=== PATIENT | female | born 1990 | race Caucasian/White ===

== ENCOUNTER → 2020-10-02 10:43 | Outpatient (CLI) | payer OTHER, SELFPAY ==
[2020-10-02 11:22] LABS: Add Manual Diff / Slide Review NO; Basophils Absolute Auto 0 /uL (0-100); Basophils Percent Auto 0.7 % (0-2); Eosinophils Absolute Auto 0 /uL (0-450); Eosinophils Percent Auto 0.5 % (2-4); Hematocrit 39.2 % (36-46); Hemoglobin 12.9 g/dL (12.0-16.0); Lymphocytes Absolute Auto 1100 /uL (1100-4500); Mean Corpuscular Hemoglobin 30.3 PG (26-34); Monocytes Absolute Auto 300 /uL (0-900); Monocytes Percent Auto 6.1 % (3-14); Neutrophils Absolute Auto 3000 /uL (1500-7000); Neutrophils Percent Auto 67.7 % (50-75); Platelet Count 211 X10^3/uL (150-400); Red Blood Cell Count 4.27 X10^6/uL (4.0-5.2); Red Cell Distribution Width 12.7 % (11.6-14.8); White Blood Cell Count 4.4 X10^3/uL (4.5-11.0)
[2020-10-02 12:17] LABS: Free T4, Direct Thyroxine 1.13 ng/dL (0.78-2.19)
[2020-10-02 12:31] LABS: Thyroid Stimulating Hormone 1.32 uIU/mL (0.47-4.68)
[2020-10-03 08:36] LABS: Rubeola Measles IgG 19.6 AU/mL (Immune >16.4); Varicella IgG Antibody 570 index (Immune >165)
== END ==
PROVIDERS: PCP Obstetrics & Gynecology; Referring Provider Obstetrics & Gynecology; Visit Provider Obstetrics & Gynecology
DX: Z31.69 Encounter for other general counseling and advice on procreation (principal)
CPT/HCPCS: 36415; 84439; 84443; 85025; 86735; 86762; 86765; 86787

== ENCOUNTER → 2021-04-14 10:04 | Outpatient (CLI) | payer OTHER, SELFPAY ==
[2021-04-14 11:52] LABS: HCG Quantitative /Beta subunit 49.1 mIU/mL
== END ==
PROVIDERS: Referring Provider Obstetrics & Gynecology; Visit Provider Obstetrics & Gynecology
DX: O20.9 Hemorrhage in early pregnancy, unspecified (principal)
CPT/HCPCS: 36415; 84702

== ENCOUNTER → 2021-04-16 14:48 | Outpatient (CLI) | payer OTHER, SELFPAY | PROVIDERS: Referring Provider Obstetrics & Gynecology; Visit Provider Obstetrics & Gynecology | DX: O20.9 Hemorrhage in early pregnancy, unspecified (principal) | CPT/HCPCS: 36415; 84702 ==

== ENCOUNTER → 2021-04-23 10:17 | Outpatient (CLI) | payer OTHER, SELFPAY ==
[2021-04-23 11:45] LABS: HCG Quantitative /Beta subunit 12.6 mIU/mL
== END ==
PROVIDERS: Referring Provider Obstetrics & Gynecology; Visit Provider Obstetrics & Gynecology
DX: O36.80X0 Pregnancy with inconclusive fetal viability, not applicable or unspecified (principal)
CPT/HCPCS: 36415; 84702; 86850; 86900; 86901

== ENCOUNTER → 2021-05-05 07:44 | Outpatient (CLI) | payer OTHER, SELFPAY | PROVIDERS: Visit Provider Student in an Organized Health Care Education/Training Program | DX: N34.3 Urethral syndrome, unspecified (principal) | CPT/HCPCS: 87086 ==

== ENCOUNTER → 2021-05-26 11:14 | Outpatient (CLI) | payer OTHER, SELFPAY ==
[2021-05-26 13:34] LABS: HCG Quantitative /Beta subunit 75.4 mIU/mL
== END ==
PROVIDERS: Referring Provider Obstetrics & Gynecology; Visit Provider Obstetrics & Gynecology
DX: O20.9 Hemorrhage in early pregnancy, unspecified (principal)
CPT/HCPCS: 36415; 84702

== ENCOUNTER → 2021-05-28 12:09 | Outpatient (CLI) | payer OTHER, SELFPAY ==
[2021-05-28 13:59] LABS: HCG Quantitative /Beta subunit 129.7 mIU/mL
== END ==
PROVIDERS: Referring Provider Obstetrics & Gynecology; Visit Provider Obstetrics & Gynecology
DX: O20.9 Hemorrhage in early pregnancy, unspecified (principal)
CPT/HCPCS: 36415; 84702

== ENCOUNTER → 2021-06-02 07:34 | Outpatient (CLI) | payer OTHER, SELFPAY | PROVIDERS: Referring Provider Obstetrics & Gynecology; Visit Provider Obstetrics & Gynecology | DX: O26.859 Spotting complicating pregnancy, unspecified trimester (principal) | CPT/HCPCS: 36415; 84702 ==

== ENCOUNTER → 2021-06-27 09:33 | Outpatient (CLI) | payer OTHER, SELFPAY ==
[2021-07-02 16:40] LABS: % Free Progesterone 2.3 % (.); Free Progesterone 35 ng/dL (.); Progesterone, Serum 1510 ng/dL (.)
== END ==
PROVIDERS: Referring Provider Family Medicine; Visit Provider Family Medicine
DX: N96 Recurrent pregnancy loss (principal)
CPT/HCPCS: 36415; 84144; 84999